=== PATIENT | male | born 1955 | race Hispanic/Latino ===

== ENCOUNTER → 2025-03-26 | Outpatient (CLI) | payer OTHER ==
[~2025-03-26] VITALS: Ht 167.6 cm; Wt 85.5 kg
[~2025-03-26] MED LIST: ESOM40CA66 PO; LOSA100T59 PO; METO-408 PO
[2025-03-26 13:56] LABS: BASOPHILS # (AUTO) 0.03 K/uL (0.00-0.20); BASOPHILS % (AUTO) 0.5 % (0.0-5.0); EOSINOPHILS # (AUTO) 0.23 K/uL (0.00-0.70); EOSINOPHILS % (AUTO) 3.5 % (0.0-8.0); HEMATOCRIT 43.5 % (42-54); IMMATURE GRANULOCYTE ABSOLUTE 0.02 K/uL (0-1); LYMPHOCYTES # (AUTO) 2.2 K/uL (1.0-4.8); LYMPHOCYTES % (AUTO) 33.3 % (21.0-51.0); MEAN CORPUSCULAR HGB CONC 32.6 g/dL (32.0-36.0); MEAN CORPUSCULAR VOLUME 88.8 fL (79-99); MONOCYTES # (AUTO) 0.5 K/uL (0.1-1.0); MONOCYTES % (AUTO) 6.8 % (3.0-13.0); NEUTROPHILS # (AUTO) 3.7 K/uL (1.8-7.7); NEUTROPHILS % (AUTO) 55.6 % (40.0-77.0); PLATELET COUNT (AUTO) 189 K/uL (130-400); RED CELL DISTRIBUTION WIDTH 13.2 % (11.0-15.5); WHITE BLOOD COUNT (AUTO) 6.6 K/uL (4.8-10.8)
[2025-03-26 14:01] LABS: CREATININE 0.8 mg/dL (0.5-1.3); POTASSIUM 4.3 mmol/L (3.5-5.1)
[2025-03-26 14:04] VITALS: BP 135/81; PULSE 57; RESP 18; TEMP 98.5
[2025-03-26 14:11] LABS: INR 1.09 (0.85-1.15); PROTHROMBIN TIME 11.5 SEC (9.6-11.6)
[2025-03-26 14:12] LABS: PARTIAL THROMBOPLASTIN TIME 29.1 SEC (26.3-35.5)
== END | disposition home or self-care (01) ==
LOC: EDSTATUS 13:00 → DAH 13:20
PROVIDERS: ATTEND Surgery
DX: Z01.812 Encounter for preprocedural laboratory examination (principal); K21.00 Gastro-esophageal reflux disease with esophagitis, without bleeding; K44.9 Diaphragmatic hernia without obstruction or gangrene; K76.0 Fatty (change of) liver, not elsewhere classified
CPT/HCPCS: 80048; 85025; 85610; 85730; 86850; 86900; 86901; 36415; A6260

== ENCOUNTER 2025-05-23 09:43 | Observation (INO) | payer OTHER ==
[2025-05-21 10:25] VITALS: BP 145/87; PULSE 68; RESP 17; TEMP 98.4
[2025-05-21 10:41] LABS: IMMATURE GRANULOCYTE ABSOLUTE 0.02 K/uL (0-1); NUCLEATED RED BLOOD CELLS 0.0 % (0.0-0.19); PLATELET COUNT (AUTO) 198 K/uL (130-400); RED BLOOD CELL COUNT(AUTO) 5.08 MIL/uL (4.50-6.20); RED CELL DISTRIBUTION WIDTH 13.0 % (11.0-15.5); WHITE BLOOD COUNT (AUTO) 5.7 K/uL (4.8-10.8)
[2025-05-21 10:51] LABS: INR 1.06 (0.85-1.15)
[2025-05-21 10:55] LABS: CREATININE 0.7 mg/dL (0.5-1.3); GLOMERULAR FILTR. RATE CALC 101.0 mL/min (>90); GLUCOSE,RANDOM 102.0 mg/dL (70-105); SODIUM SERUM 140.0 mmol/L (136-145); UREA NITROGEN, BLOOD 20.0 mg/dL (7-18)
--- NOTE | 2025-05-21 11:00 | EKG ---
[facility] Test Date: 2025-05-21 Test Time: 10:20:07 Pat Name: KEVIN AGUILAR Department[facility] Room: Gender: M [employer] Operator: [id number] : [id number] Requested By: PRASHANT STOREY Order Number: [id number] Reading MD: Daniel Read Measurements Intervals [place] Rate: 60 P: 59 CT: 146 QRS: -5 QRSD: 76 T: 20 QT: 398 QTc: 398 Interpretive Statements Normal sinus rhythm No previous ECG available for comparison Electronically Signed On 05-21-2025 12:03:45 CDT by Daniel Read Please click the below link to view image of tracing.
[~2025-05-23] VITALS: Ht 167.6 cm; Wt 85.2 kg
[2025-05-23] VITALS (27 sets, daily range): BP systolic 133–169; BP diastolic 73–110; PULSE 53–81; RESP 15–22; TEMP 97.1–98.1; O2SAT 98–99
[2025-05-23] MEDS: LACTATED RINGERS 1000ML 1,000 ML IV ONE (09:53)
[2025-05-23] MEDS: GABAPENTIN 300 MG CAPSULE ONE (09:53)
[2025-05-23] MEDS ORDERED: LIDOCAINE PF 100MG/5ML (2%) SYRINGE 5ML ONE (12:39)
[2025-05-23] MEDS: FAMOTIDINE 20MG VIAL IV ONE (13:31)
[2025-05-23] MEDS ORDERED: NEOSTIGMINE METHYLSULFATE 1MG/ML IV ONE (14:12)
[2025-05-23] MEDS ORDERED: GLYCOPYRROLATE 0.2 MG/ML 5 ML VIAL ONE (14:12)
--- NOTE | 2025-05-23 15:50 | PN ---
GENERAL SURGERY PROGRESS NOTE Date/Time Patient Seen: [ 05/23/2025 4:00 p.m.] Problem List: [ ] Interval History: [ Postop day 0. Pain tolerable with p.r.n. medication.] Physical Examination: GENERAL: [No acute distress.] ABD: [Incisions clean, dry and intact, Dermabond in place] Vital Signs (last 8hr) Date Time Temp Pulse Resp B/P (MAP) Pulse Ox O2 Delivery O2 Flow Rate FiO2 05/23/25 15:40 97.2 58 17 141/81 98 Nonrebreathing Mask 10.0 100 05/23/25 15:35 97.2 58 17 138/78 98 Nonrebreathing Mask 10.0 100 05/23/25 15:30 97.2 62 16 137/80 98 Nonrebreathing Mask 10.0 100 05/23/25 15:25 97.2 68 16 133/86 98 Nonrebreathing Mask 10.0 100 05/23/25 09:50 97.2 58 18 134/84 97 Room Air Laboratory: [ ] Diagnostics / Radiology: [Copy/Paste Echos/Imaging Report here] Impression and Plan: [Plan is for discharge home in the next day or two as long as patient tolerating p.o., ambulatory and pain under control. Discussed with patient and family. They understand and agree. ] JOSE STOREY May 23, 2025 15:49
[2025-05-23] MEDS ORDERED: PROCHLORPERAZINE 10MG/2ML INJ IV PRN (16:00)
[2025-05-23] MEDS: ENOXAPARIN SODIUM 30 MG/0.3 ML SQ SCH (16:00)
[2025-05-23] MEDS ORDERED: HYDROcod/acetaMINOPHEN 7.5/325 MG 15 ML UDCUP PO PRN (16:00)
--- NOTE | 2025-05-23 16:08 | OP ---
Operative Note: DATE OF PROCEDURE: 05/23/25 SURGEON: PRASHANT STOREY MD WORK MANAGER: Lucien Storey MD PA-C ANESTHESIA: General and Local ANESTHESIOLOGIST/PROCESS IMPROVEMENT ANALYST: [facility] [place] PREOPERATIVE DIAGNOSIS: Symptomatic hiatal hernia and esophageal dysmotility POSTOPERATIVE DIAGNOSIS: As above SYNOPSIS: Hernia repair with mesh reinforcement, partial anterior fundoplication PROCEDURE: 1. Robotic assisted hiatal hernia repair with mesh reinforcement 2. Anterior partial fundoplication 3. EGD ESTIMATED BLOOD LOSS: min, <30cc INDICATIONS: As above DESCRIPTION OF PROCEDURE: Standard precautions and preparations were undertaken a Veress needle and optical trocar were used to enter the abdominal cavity. All other instruments were placed under direct vision. The robotic system was docked in the standard fashion. We began our dissection by opening pars flaccida and identifying the right quin of the diaphragm. From there we were able to enter into the mediastinum through a nearly avascular plane and carried that dissection circumferentially. This mobilize the GE junction to a point where was resting below the hiatus without any tension. We cleared the right and left crura of any unwanted attachments and began our hernia repair. We started suturing at the crossing fibers in the retroesophageal space and we are going to our way upwards towards the posterior esophageal wall. Care was taken not to over tighten. This was then reinforced with a mesh placement. We utilized a slowly absorbable two sided Bard mesh product. It was cut in a horseshoe fashion and placed as an overlay and then sutured in place to prevent mesh migration. We then mobilize the proximal fundus in anticipation of a partial fundoplication given the patient's esophageal dysmotility. The anatomy landed on such a way to favor an anterior partial fundoplication. The fundus was folded over and sutured in place. My partner used the EGD scope to verify the anatomy was appropriate. He passed the scope down into the stomach and a retroflex view demonstrated the anterior partial fundoplication in place and no sign of over tightening. The GE junction was appropriately located. The distal esophagus and proximal stomach demonstrated no signs of injury or leak. At the end of the case all instrument counts were verified as correct including needles and sponges. PRASHANT STOREY MD May 23, 2025 16:08
--- NOTE | 2025-05-23 16:30 | NUR ---
PT arrived on unit via stretcher/bed post surgery, A&Ox2 denies pain or discomfort, Abdomen incision approximated, neg edema, neg erythema. Resp = & unlabored bilat on 2L O2. IV patent flushed w/ normal saline. Family @ bedside. educated on use of call light, bed controls, safety in hospital. Will continue to monitor.
[2025-05-23] MEDS: LACTATED RINGERS 1000ML 1,000 ML IV SCH (17:06)
[2025-05-23] MEDS: FAMOTIDINE 20MG VIAL IV SCH (20:01)
[2025-05-24 03:50] VITALS: BP 127/83; PULSE 74; RESP 16; TEMP 98.2
--- NOTE | 2025-05-24 05:22 | NUR ---
PT COMPLAINS OF FEELING BLOATED QUESTIONED PT IF THEY WOULD LOOK TO AMBULATE. PT WALKED 2 LAPS AROUND THIRD FLOOR. PT COMPLAINS OF NO PAIN AT THIS TIME. BED LOWERED AND LOCKED SIDE RAILS UP X2 CALL LIGHT IN PLACE.
[2025-05-24 07:54] VITALS: O2SAT 97
[2025-05-24 08:00] VITALS: BP 133/83; PULSE 81; RESP 19; TEMP 98.1
--- NOTE | 2025-05-24 11:05 | NUR ---
DCP: HOME Pt currently lives with saira Cedeno [phone] who was at bedside. Pt does not have any DME, home health, or provider services. Pt is able to complete ADLs independently. PCP is Dr. Zack Pelletier and uses [facility] for any RX needs. At DC pt will want to go home and family can assist with transportation. Addendum: 05/24/25 at 1107 by MESFIN RIZVI SS Amended: Links added.
[2025-05-24 12:00] VITALS: BP 116/79; PULSE 78; RESP 18; TEMP 98.2
[2025-05-24 16:00] VITALS: BP 131/81; PULSE 80; RESP 19; TEMP 97.7
--- NOTE | 2025-05-24 17:49 | DS ---
Discharge Summary Hospital Course Patient is a 69-year-old male with diaphragmatic hernia and severe reflux in addition to esophageal dysmotility who was admitted from the outpatient setting for elective robotic assisted hiatal hernia repair with partial anterior fundoplication on 05/23/[address] Rc Padron. No issues during the procedure. Patient is now postop day one. Tolerating liquid diet, pain well controlled, ambulating in the hallway. Patient remains hemodynamically stable, afebrile. Normal sinus rhythm. Aerating well on room air. Patient is meeting discharge criteria. He has follow up appointment already in place. Postop meds have been submitted to the patient's pharmacy. Return precautions given including fevers of 101.5 or higher, worsening abdominal pain, intractable nausea and vomiting. Patient agrees with discharge BENSON ZAZUETA MD May 24, 2025 17:49
[2025-05-24] MEDS: MAGNESIUM HYDROXIDE 30 ML/UDCUP PO SCH (18:23)
--- NOTE | 2025-05-24 18:27 | NUR ---
DISCHARGE DC'D IV. NO COMPLICATIONS. NO PAIN AT THIS TIME. AWARE TO CALL DR. PRASHANT STOREY OFFICE FOR FOLLOW UP APPOINTMENT. PONE NUMBER PROVIDED. INCISIONS INTACT. ANSWERED ALL QUESTIONS. Addendum: 05/24/25 at 1836 by YING ATKINS, JIM SANTAMARIAN INSTRUCTIONS AWARE TO AVOID HEAVY LIFTING AND TO CONTINUE FULL LIQUID DIET FOR 3-5 DAYS AND CONTINUE TOLERATED.
== END 2025-05-24 18:50 | disposition home or self-care (01) ==
LOC: DAH 09:43 → INTOOBSV 09:44 → DAH 09:44 → DAHIP 09:44 → 3CH 16:30
PROVIDERS: ADMIT Surgery; ATTEND Surgery
DX: K44.9 Diaphragmatic hernia without obstruction or gangrene (principal); K21.9 Gastro-esophageal reflux disease without esophagitis; K21.00 Gastro-esophageal reflux disease with esophagitis, without bleeding; K22.4 Dyskinesia of esophagus; I10 Essential (primary) hypertension; K76.0 Fatty (change of) liver, not elsewhere classified; Z79.899 Other long term (current) drug therapy; Z86.2 Personal history of diseases of the blood and blood-forming organs and certain disorders involving the immune mechanism
CPT/HCPCS: 80048; 85025; 85610; 85730; 86850; 86900; 86901; 36415; 93005; 43282; 96374; 96376; 96372; 96375; 97161; 97116; A6260; A4600; A4663; A4215 ×2; J7120; J3490 ×6; J3010; J1100; J2270; J0665; J2003; J2704; J2405; J2710; J0690; C1781; A4930; A4223; A4222; A4221; A4216; G0378 ×4; J1650 ×2; J1885; 43235